=== PATIENT | female | born 1980 | race Caucasian/White ===

== ENCOUNTER 2021-01-27 21:37 | Emergency (ER) | payer MEDICAID ==
[~2021-01-27] VITALS: Ht 167.6 cm; Wt 90.0 kg
[~2021-01-27 21:37] MED LIST: ALBU8.5H5 INH
--- NOTE | 2021-01-27 21:38 | NUR ---
PT UP TO RESTROOM STEADY GAIT NO ASSIST REQ
--- NOTE | 2021-01-27 21:40 | NUR ---
BIB EMS FOR N/V/D X2 DAYS. PT DENIES RECENT ABX. STS NOTHING HELPS AND HAS NOT BEEN ABLE TO EAT OR DRINK. PT STS SHE DID SMOKE SOME METH RECENTLY BUT STS THAT SHE DOESN'T THINK THAT IS A FACTOR. PT CONNECTED TO MONITORING VSS. NADN SPEAKING IN FULL SENTENCES
[2021-01-27] MEDS ORDERED: DICYCLOMINE 10 MG/ML, 2ML ONE (21:42)
[2021-01-27] MEDS ORDERED: ONDANSETRON 2MG/ML, 2ML ONE (21:42)
--- NOTE | 2021-01-27 21:45 | NUR ---
PT EDUCATED ON NEED FOR STOOL/ URINE SAMPLES STS "I DONT THINK THERE'S ANYTHING LEFT IN THERE."
[2021-01-27] MEDS ORDERED: DICYCLOMINE 10 MG/ML, 2ML IM ONE (22:00)
[2021-01-27] MEDS ORDERED: SODIUM CHLORIDE 0.9% 1,000ML IVBOLUS ONE (22:00)
[2021-01-27] MEDS ORDERED: ONDANSETRON 2MG/ML, 2ML IVPush ONE (22:00)
[2021-01-27] MEDS ORDERED: SODIUM CHLORIDE FLUSH 10ML SYR IVF ONE (22:00)
[2021-01-27 22:09] LABS: BASOPHILS % (AUTO) 2 % (0-1); EOSINOPHILS % (AUTO) 3 % (1-7); LYMPHOCYTES % (AUTO) 25 % (22-44); MEAN CORPUSCULAR HEMOGLOBIN 22.8 pg (27.0-34.8); MEAN CORPUSCULAR HGB CONC 31.3 g/dL (32.4-35.8); MEAN PLATELET VOLUME 7.6 fL (7.4-10.4); MONOCYTES % (AUTO) 8 % (2-9); NEUTROPHILS % (AUTO) 63 % (42-75); PLATELET COUNT 295 x10^3/uL (130-400); RED BLOOD COUNT 5.02 x10^6/uL (3.82-5.3); RED CELL DISTRIBUTION WIDTH 17.6 % (9.6-15.2)
[2021-01-27 22:10] LABS: MD NO
[2021-01-27 22:18] LABS: ALANINE AMINOTRANSFERASE 24 U/L (12-78); ALBUMIN 3.5 g/dL (3.4-5.0); ANION GAP 7 mmol/L (5-15); CALCIUM 9.5 mg/dL (8.5-10.1); CHLORIDE 110 mmol/L (98-107); CREATININE 0.76 mg/dL (0.55-1.02)
--- NOTE | 2021-01-27 22:18 | NUR ---
PT NOW SLEEPING COMFORTABLY ON [facility]
[2021-01-27 22:20] LABS: ALKALINE PHOSPHATASE 84 U/L (45-117); BILIRUBIN,TOTAL 0.4 mg/dL (0.2-1.0); TOTAL PROTEIN 7.1 g/dL (6.4-8.2)
[2021-01-28 00:02] VITALS: BP 124/91
--- NOTE | 2021-01-28 00:10 | NUR ---
DC PAPERS BROUGHT TO PT, DURING EDUCATION ATTEMPT PT REMOVED PIV WITH HER TEETH AND BEGAN SHOUTING AT RN THAT SHE HAS NO ONE AND SHE NEEDS AN INHALER BECAUSE SHE CANNOT BREATHE. ERP UPDATED ON PT.
--- NOTE | 2021-01-28 00:24 | NUR ---
PT GOT GIVEN SCRIPT FOR INHALER PER REQUEST. PT BEGAN SCREAMING AT RN AND THROWING BLANKETS.
--- NOTE | 2021-01-28 00:25 | NUR ---
SECURITY CALLED TO ASSIST WITH DC PT IS UNCOOPERATIVE
--- NOTE | 2021-01-28 00:30 | NUR ---
PT SHOUTING AND ROCKING I CAN'T BREATHE I NEED MEDICAL HELP, PULSE OX 99% AT THIS TIME.
--- NOTE | 2021-01-28 00:39 | NUR ---
[facility] CALLED TO VERIFY LOCATION OF PT RESOURCING ADVISOR AND LOCATION OF BELONGINGS
--- NOTE | 2021-01-28 00:41 | NUR ---
GHISLAINE LEMUS PT HAD NO BELONGINGS WHEN THEY PICKED HER UP.
--- NOTE | 2021-01-28 00:58 | NUR ---
[facility] NOW AT BEDSIDE.
--- NOTE | 2021-01-28 01:11 | NUR ---
PT ESCORTED OUT WITH [facility] AND SECURITY AT THIS TIME
== END 2021-01-28 01:13 | disposition home or self-care (01) ==
LOC: ED 22:00
DX: A09 Infectious gastroenteritis and colitis, unspecified (principal); J45.909 Unspecified asthma, uncomplicated; Z90.49 Acquired absence of other specified parts of digestive tract; R00.0 Tachycardia, unspecified
CPT/HCPCS: 36415; 80053; 83690; 85025; 96372; 96374; 99284; J0500; J2405; J7030